=== PATIENT | female | born 1985 | race Caucasian/White ===

== ENCOUNTER 2017-03-10 15:49 | Emergency (ER) | payer OTHER ==
[~2017-03-10] VITALS: Ht 175.3 cm; Wt 100.0 kg
[2017-03-10 15:52] VITALS: BP 135/84; PULSE 83; RESP 14; TEMP 97.9; O2SAT 99
[2017-03-10] MEDS ORDERED: CELE40TA PO (16:43)
[2017-03-10] MEDS ORDERED: BUPR150XL PO (16:43)
[2017-03-10] MEDS ORDERED: CEPH-460 PO (17:02)
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
[2017-03-10 17:20] VITALS: BP 108/76; TEMP 97.8
== END 2017-03-10 17:20 | disposition home or self-care (01) ==
LOC: NEPD 15:49
DX: S60.512A Abrasion of left hand, initial encounter (principal); S80.812A Abrasion, left lower leg, initial encounter; F41.9 Anxiety disorder, unspecified; F32.9 Major depressive disorder, single episode, unspecified; V29.9XXA Motorcycle rider (driver) (passenger) injured in unspecified traffic accident, initial encounter; Z79.899 Other long term (current) drug therapy
CPT/HCPCS: 99283

== ENCOUNTER 2017-07-27 16:35 | Emergency (ER) | payer OTHER ==
[~2017-07-27 16:35] MED LIST: BUPR150XL PO; CELE40TA PO; CEPH-460 PO
[2017-07-27 16:37] VITALS: BP 160/102; PULSE 99; RESP 16; TEMP 99.6; O2SAT 99
--- NOTE | 2017-07-27 17:09 | PD ---
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 She had a small puncture wound to the left thumb. She immediately cleaned it thoroughly. The source patient is known in being tested. Patient has been vaccinated for hepatitis and tetanus is up-to-date. Patient has no complaints of pain. She is allergic to latex [facility] Past Medical History Anxiety: Yes Depression: Yes Diminished Hearing: No Psychiatric: Yes Influenza Vaccination: Yes ?: Not LMP: 07/20/2017 : 2 Para: 2 Past Surgical History Oral Surgery: Yes (wisdom teeth extracted) Social History Alcohol Use: Yes (rare) Tobacco Use: No Substance Use: No Allergies-Medications (Allergen,Severity, Reaction): Coded Allergies: latex (Verified Allergy, Intermediate, RASH, 07/27/17) Reported Meds & Prescriptions Reported Meds & Active Scripts Active Reported Celexa (Citalopram Hydrobromide) 40 Mg Tab 40 Mg PO DAILY Wellbutrin Xl 24 HR (Bupropion HCl) 150 Mg Tab 150 Mg PO DAILY Review of Systems Except as stated in HPI: all other systems reviewed are Neg General / Constitutional: No: Fever Eyes: No: Visual changes HENT: No: Headaches Cardiovascular: No: Chest Pain or Discomfort Respiratory: No: Shortness of Breath Gastrointestinal: No: Abdominal Pain Genitourinary: No: Dysuria Musculoskeletal: No: Pain Skin: No Rash Neurologic: No: Weakness Psychiatric: No: Depression Endocrine: No: Polydipsia Hematologic/Lymphatic: No: Easy Bruising Physical Exam Narrative GENERAL: Patient appears in no obvious distress. SKIN: Warm and dry. Normal color. Normal turgor. Small puncture wound noted to the thumb without active bleeding. It is very superficial HEAD: Atraumatic. Normocephalic. EYES: Pupils equal and round. No scleral icterus. No injection or drainage. ENT: No nasal bleeding or discharge. Mucous membranes pink and moist. Pharynx is clear. Airways patent NECK: Trachea midline. Supple nontender. CARDIOVASCULAR: Regular rate and rhythm. RESPIRATORY: No accessory muscle use. Clear to auscultation. Breath sounds equal bilaterally. MUSCULOSKELETAL: Extremities without clubbing, cyanosis, or edema. No obvious deformities. NEUROLOGICAL: Awake and alert. No obvious cranial nerve deficits. Motor grossly within normal limits. Five out of 5 muscle strength in the arms and legs. Normal speech. PSYCHIATRIC: Appropriate mood and affect; insight and judgment normal. Data Data Last Documented VS Vital Signs Date Time Temp Pulse Resp B/P (MAP) Pulse Ox O2 Delivery O2 Flow Rate FiO2 07/27/17 16:37 99.6 99 16 160/102 (121) 99 MDM Medical Decision Making Medical Screen Exam Complete: Yes Emergency Medical Condition: Yes Differential Diagnosis Workplace injury. Fingerstick. Possible blood-borne pathogen exposure Narrative Course Exposure checklist is reviewed and filled out. Baseline labs are ordered per protocol. Postexposure prophylaxis is not recommended based on the patient's history and physical. Source patient testing is pending. Patient to follow-up with employee med. Patient to return to work without restrictions. Diagnosis Primary Impression: Work related injury Additional Impression: Exposure to blood-borne pathogen Referrals: Employ Med call for appointment Patient Instructions: Postexposure Prophylaxis (ED), General Instructions Additional Instructions: Exposure checklist is reviewed and filled out. Baseline labs are ordered per protocol. Postexposure prophylaxis is not recommended based on the patient's history and physical. Source patient testing is pending. Patient to follow-up with employee med. Patient to return to work without restrictions. Med/Other Pt SpecificInfo: No Meds Exist/No RX given Disposition: 01 DISCHARGE HOME Condition: Stable Cesar Cruz July 27, 2017 17:09
== END 2017-07-27 17:40 | disposition home or self-care (01) ==
LOC: NEPD 16:35
DX: S61.032A Puncture wound without foreign body of left thumb without damage to nail, initial encounter (principal); W26.8XXA Contact with other sharp object(s), not elsewhere classified, initial encounter; Y93.89 Activity, other specified; Y92.234 Operating room of hospital as the place of occurrence of the external cause; Y99.0 Civilian activity done for income or pay
CPT/HCPCS: 99281